=== PATIENT | female | born 1930 | race Caucasian/White ===

== ENCOUNTER 2017-09-13 12:31 | Inpatient (IN) ==
[2017-09-13] MEDS ORDERED: Ondansetron 4 MG/2 ML VIAL IVP ONE (12:35)
[2017-09-13] MEDS ORDERED: 0.9 % Sodium Chloride 1,000 ML IVC ONE (12:35)
--- NOTE | 2017-09-13 12:51 | Emergency Department Note ---
Disposition Clinical Impression: Diverticulitis, Acute diarrhea, Atrial fibrillation with RVR, Hypokalemia, Supratherapeutic INR Disposition: Admitted As Inpatient Condition: Undetermined Time of Disposition: 15:18 General Adult HPI - General Chief complaint: ED Weakness Stated complaint: weakness Time Seen by Provider: 09/13/17 12:32 Source: patient, EMS Mode of arrival: EMS Limitations: no limitations Nursing Notes Reviewed: Yes Vital Signs Reviewed: Yes - History of Present Illness HPI Narrative: 87-year-old female arrives to the emergency department complaining of diarrhea and generalized weakness over the course of the past few days. The patient states that she feels very weak is been experiencing high heart rate. The patient states that she feels some palpitations. She denies any chest pain or difficulty breathing. The patient is is very anxious on examination. She admits to some abdominal cramping but denies any overt abdominal pain. She has some associated nausea without vomiting. She is expressing diarrhea but states this is not uncommon for her given her past history of IBS. The patient does admit some intermittent episodes of hematochezia which again is not unusual for the patient. The patient denies any other complaints at this time but again appears very anxious on examination. - Related Data Allergies Allergy/AdvReac Type Severity Reaction Status Date / Time No Known Allergies Allergy Verified 09/13/17 13:05 All systems ED: reviewed and negative except as stated. Constitutional: Reports: weakness. Denies: fever, chills ENT ED: Denies: dysphagia Cardiovascular: Reports: palpitations. Denies: dyspnea on exertion, orthopnea, edema Respiratory: Denies: cough, dyspnea, sputum production Gastrointestinal: Reports: abdominal pain, nausea, diarrhea, hematochezia. Denies: vomiting, constipation, hematemesis, melena Genitourinary: Denies: urgency, dysuria Musculoskeletal: Reports: myalgia. Denies: back pain, neck pain, arthralgia Integumentary: Denies: rash Neurological: Reports: weakness. Denies: headache, confusion Past Medical History - Past Medical History Attestation: Yes The following information was validated with the patient. Source: patient, old records reviewed Medical history: Reports: hypertension, other (IBS) Surgical history: Reports: non-contributory - Social History Smoking Status: Never smoker Alcohol use: Reports: none Drug use: Reports: none Physical Exam - General Limitations: no limitations General appearance: alert, anxious, in distress (anxious) - Head Head exam: atraumatic, normocephalic, normal inspection - Eye Eye exam: Present: normal appearance, PERRL, EOMI - ENT ENT exam: normal exam, normal oropharynx, mucous membranes moist - Neck Neck exam: Present: normal inspection, full ROM, trachea midline - Chest Chest inspection: Present: normal inspection, symmetric chest wall rise - Respiratory Respiratory exam: Present: normal lung sounds bilaterally - Cardiovascular Cardiovascular exam: Present: tachycardia, irregular rhythm, normal heart sounds - Abdominal Exam Abdominal exam: Present: soft, Non-Tender. Absent: tenderness, distention, guarding, rebound, rigidity - Extremities Exam Extremities exam: Present: normal inspection, full ROM. Absent: tenderness, pedal edema - Neurological Exam Neurological exam: Present: alert, oriented X3 - Skin Skin exam: Present: warm, dry, intact, normal color Course Vital Signs Temperature 98.2 F 09/13/17 12:38 Pulse Rate 161 09/13/17 12:38 Respiratory Rate 22 09/13/17 12:38 Blood Pressure 177/154 09/13/17 12:38 O2 Sat by Pulse Oximetry 100 09/13/17 12:38 Temperature 98.2 F 09/13/17 12:38 Pulse Rate 86 09/13/17 16:20 Respiratory Rate 18 09/13/17 15:30 Blood Pressure 160/63 09/13/17 16:20 O2 Sat by Pulse Oximetry 96 09/13/17 16:20 Oxygen Delivery Oxygen Delivery Room Air Medical Decision Making - [facility] Narrative Medical decision making narrative: Patient's workup in the emergency department demonstrates atrial fibrillation with RVR. The patient was given a diltiazem bolus and started diltiazem drip. She is currently on a drip with a heart rate in the 70s. She remains in atrial fibrillation. The patient is on warfarin with an INR 5.6 which is critical. The patient has no bleeding noted. The patient was noted to have diverticulitis on CT scan. She was started on Cipro and Flagyl. The patient's blood pressure has remained stable and has a systolic of 164. The patient's heart rate is responded appropriately. The patient is resting comfortably at this time. She will be admitted to the hospital at this time with a supratherapeutic INR, atrial fibrillation with RVR, and diverticulitis with IV antibiotics. The patient was made aware and agrees to plan. Urinalysis remains pending at this time. No further questions or concerns noted, accepted by Dr. Mukherjee. - Lab Data Lab results reviewed: Yes I reviewed the patient's lab results. Result diagrams: 09/13/17 13:42 09/13/17 13:42 Lab Results 09/13/17 09/13/17 09/13/17 Range/Units 13:42 13:42 14:14 WBC 10.9 (4.3-11.1) K/mcL RBC 4.77 (3.82-4.97) M/mcL Hgb 14.5 (11.5-15.4) g/dL Hct 43.0 (35.3-44.9) % MCV 90.1 (83.0-100.0) fL MCH 30.4 (28.0-33.3) pg MCHC 33.7 (31.6-35.5) g/dL RDW 13.2 (11.5-14.5) % Plt Count 302 (140-400) K/mcL MPV 9.8 (9.4-12.4) fL Immature Gran % 0.4 (0-4) % Seg Neutrophils % 70.5 % Lymphocytes % 19.5 % Monocytes % 7.9 % Eosinophils % 1.2 % Basophils % 0.5 % Neutrophils # 7.7 (1.6-8.9) K/mcL Lymphocytes # 2.1 (0.6-4.6) K/mcL Monocytes # 0.9 (0.0-1.3) K/mcL Eosinophils # 0.1 (0.0-0.6) K/mcL Basophils # 0.1 (0.0-0.2) K/mcL PT 62.7 H* (9.4-12.1) Seconds INR 5.6 H* Sodium 143 (136-145) mEq/L Potassium 2.9 L (3.5-5.1) mEq/L Chloride 104 (98-107) mEq/L Carbon Dioxide 23 (23-29) mEq/L BUN 18 (8-23) mg/dL Creatinine 1.08 (0.60-1.20) mg/dL Est GFR ( Amer) 58 L (> 60) Est GFR (Non-Af Amer) 48 L (> 60) BUN/Creatinine Ratio 17 (6-26) Glucose 120 H (70-105) mg/dL Calculated Osmolality 299 (280-300) Calcium 9.3 (8.6-10.3) mg/dL Total Bilirubin 0.7 (0.3-1.0) mg/dL Direct Bilirubin 0.2 (0.0-0.2) mg/dL Indirect Bilirubin 0.5 (0.0-1.2) mg/dL AST 17 (13-39) Units/L ALT 8 (7-52) Units/L Alkaline Phosphatase 73 (34-104) Units/L Troponin I < 0.03 (< 0.04) ng/mL Serum Total Protein 7.1 (6.4-8.9) g/dL Albumin 3.7 (3.5-5.7) g/dL Globulin 3.4 (2.4-3.5) g/dL Albumin/Globulin Ratio 1.1 (1.1-2.2) Lipase 15 (11-82) Units/L - Radiology Data Radiology results reviewed: Yes I reviewed the patient's radiology results. Abdomen/Pelvis CT 09/13/17 12:45 IMPRESSION: 1. Colonic diverticulosis with bowel wall thickening in the descending colon proximally. There is infiltration of the fat adjacent to the colon in this region suggesting diverticulitis. No abnormal fluid collection is seen to suggest an abscess. 2. Status post cholecystectomy. 3. No obstructive uropathy. 4. No other acute abnormalities seen in the abdomen or pelvis. D/ / 09/13/2017 14:03:07 Donte Lua MD / harika Interpreting Provider: Donte Lua MD - EKG Data EKG #1 EKG attestation: Yes I reviewed and interpreted this EKG. EKG results narrative: Heart rate 150 beats for minute. Atrial fibrillation. No ST elevation or ST depression noted. Rapid ventricular response noted. EKG #2: Heart rate 90 beats for minute. Atrial fibrillation. No ST elevation but mild diffuse ST depression noted. Attestation Statement - Attestation Attestation: I examined this patient and my medical decision-making was reviewed with the Resident Physician. I agree with the documented findings, disposition and treatment plan as described except to the extent set forth below. 79-year-old female presenting with concern for weakness, subsequently found have supratherapeutic INR and to be in A. fib with rapid ventricular response. Her heart rate was controlled with diltiazem, subsequently found have acute diverticulitis. Suspect underlying infection as driving factor to elevated heart rate. Her symptoms are improved at this time, we will admit for antibiotic therapy, cardiac consultation evaluation of A. fib with RVR, remain on Cardizem drip for ongoing rate control. I spent greater than 35 minutes of critical care time resuscitating this acutely ill patient requiring Cardizem infusion. This was excluding billable procedures.
[2017-09-13] MEDS ORDERED: Hyoscyamine SL 0.125 MG TAB.SUBL SL STA (13:38)
[2017-09-13 13:56] LABS: Basophils # 0.1 K/mcL (0.0-0.2); Basophils % 0.5 %; Eosinophils # 0.1 K/mcL (0.0-0.6); Eosinophils % 1.2 %; Hemoglobin 14.5 g/dL (11.5-15.4); Immature Granulocytes % 0.4 % (0-4); Lymphocytes # 2.1 K/mcL (0.6-4.6); Lymphocytes % 19.5 %; Mean Corpuscular HGB Conc 33.7 g/dL (31.6-35.5); Mean Corpuscular Hemoglobin 30.4 pg (28.0-33.3); Mean Corpuscular Volume 90.1 fL (83.0-100.0); Mean Platelet Volume 9.8 fL (9.4-12.4); Monocytes # 0.9 K/mcL (0.0-1.3); Monocytes % 7.9 %; Neutrophils # 7.7 K/mcL (1.6-8.9); Platelet Count 302 K/mcL (140-400); Red Blood Count 4.77 M/mcL (3.82-4.97); Red Cell Distribution Width 13.2 % (11.5-14.5); Segmented Neutrophils % 70.5 %
[2017-09-13] MEDS ORDERED: MetroNIDAZOLE 500 MG/100 ML 500 MG/100 ML BAG IVPB ONE (14:00)
[2017-09-13 14:17] LABS: Troponin I < 0.03 ng/mL (< 0.04)
[2017-09-13 14:28] LABS: Alanine Aminotransferase 8 Units/L (7-52); Albumin 3.7 g/dL (3.5-5.7); Albumin/Globulin Ratio 1.1 (1.1-2.2); Alkaline Phosphatase 73 Units/L (34-104); Aspartate Amino Transferase 17 Units/L (13-39); BUN/Creatinine Ratio 17 (6-26); Bilirubin,Direct 0.2 mg/dL (0.0-0.2); Bilirubin,Indirect 0.5 mg/dL (0.0-1.2); Bilirubin,Total 0.7 mg/dL (0.3-1.0); Blood Urea Nitrogen 18 mg/dL (8-23); Calcium 9.3 mg/dL (8.6-10.3); Carbon Dioxide 23 mEq/L (23-29); Chloride 104 mEq/L (98-107); Globulin 3.4 g/dL (2.4-3.5); Glucose 120 mg/dL (70-105); Lipase 15 Units/L (11-82); Osmolality,Calculated 299 (280-300); Potassium 2.9 mEq/L (3.5-5.1); Sodium 143 mEq/L (136-145); Total Protein 7.1 g/dL (6.4-8.9); eGFR For Non-African Americans 48 (> 60)
[2017-09-13 14:50] LABS: INR 5.6; Prothrombin Time 62.7 Seconds (9.4-12.1)
[2017-09-13] MEDS ORDERED: Naloxone 0.4 MG/ML INJ IVP PRN (17:22)
--- NOTE | 2017-09-13 17:31 | Internal Med History&Physical ---
Addendum entered and electronically signed by Lula Thompson 09/13/17 22:31: Added Dr. Mukherjee as a co-signer Original Note: Date of Encounter: 09/13/17 Time of Encounter: 17:31 Internal Medicine - H&P: HPI Chief complaint: Weakness, tachycardia, diarrhea and abdominal cramping Admitted From: Home Plans for Post Hospital Care: Home History of present illness: Ms. Walter is a 87 year old female who indicated that she began having diarrhea , weakness, cramping abdominal pain and tachycardia. The patient indicated that she was having diarrheal stools at home. Ct of abdomen showed diverticulosis with diverticulitis. The patient has potassiun was 2.9, likely due to the diarrhea. The patient is supratherapeutic at 5.6. Will hold coumadin for now. PT /INR daily. The patient was started on flagyl and cipro in the ED and will continue. Initial EKG showed AFIB with RVR , rate 158. The second EKG showed afib with rate of 90. The patient was started on a cardizem gtt in the ED the heart rate is currently controlled. Blood pressure elevated, patient indicated she forgot to take BP meds at home, will resume. Past Med Surg Social Fam HX - Past Medical History Medical history: hypertension, other Psychiatric history: anxiety - Past Surgical History Surgical History: non-contributory - Social History Smoking Status: Never smoker Alcohol use: none Drug use: none Internal Medicine - H&P: Meds Calcium Carbonate/Vitamin D3 [Calcium 1,000 + D3 Caplet] 1 tab PO DAILY [History] Dicyclomine [Bentyl] 10 mg PO BID PRN 09/13/17 [History] FentaNYL PATCH [Duragesic] 12 mcg TD Q72H 09/13/17 [History] Isosorbide MONOnitrate (24 HR) [Imdur] 30 mg PO DAILY 09/13/17 [History] Levothyroxine [Synthroid] 75 mcg PO 0630 09/13/17 [History] Lisinopril [Zestril] 5 mg PO QAM 09/13/17 [History] Lisinopril [Zestril] 15 mg PO QPM 09/13/17 [History] Loratadine [Allergy Relief] 10 mg PO DAILY 09/13/17 [History] Metoprolol Succinate [Toprol Xl] 150 mg PO DAILY 09/13/17 [History] Mirtazapine [Remeron] 15 mg PO HS 09/13/17 [History] Omeprazole [PriLOSEC] 20 mg PO BID 09/13/17 [History] Simethicone [Phazyme] 1 cap PO DAILY PRN 09/13/17 [History] Simvastatin [Zocor] 40 mg PO HS 09/13/17 [History] Warfarin [Coumadin] 2 mg PO MOTUWETHFRSA 09/13/17 [History] Warfarin [Coumadin] 3 mg PO REY 09/13/17 [History] cloNIDine HCl [CloNIDine HCl] 0.1 mg PO BID 09/13/17 [History] 3 Allergy/AdvReac Type Severity Reaction Status Date / Time No Known Allergies Allergy Verified 09/13/17 13:05 All Systems PM: A 10-system review of systems was performed and is negative for pertinent findings except as documented above in the HPI. - Constitutional Constitutional: no chills, no fever(s), no night sweats - EENT Eyes: no change in vision, no discharge, no pain, no photophobia Ears: no ear discharge, no ear pain, no tinnitus Nose, mouth and throat: no dysphagia, no nasal discharge, no neck pain, no sore throat - Cardiovascular Cardiovascular ROS IM: irregular heart rhythm, no chest pain, no diaphoresis, no dyspnea, no lightheadedness, no palpitations, no syncope - Respiratory Respiratory: no cough, no dyspnea, no wheezing, no excessive phlegm production - Gastrointestinal Gastrointestinal: no abdominal pain, no diarrhea, no hematemesis, no hematochezia, no melena, no nausea, no vomiting - Genitourinary Genitourinary: no change in urinary stream, no dysuria, no flank pain, no hematuria - Musculoskeletal Musculoskeletal ROS IM: no numbness, no tingling - Integumentary Integumentary IM: no rash, no unusual bruising - Neurological Neurological ROS: no confusion, no convulsions, no focal weakness, no numbness, no tingling, no tremor(s) - Hematologic/Lymphatic Hematologic/Lymphatic: no easy bruising - Constitutional Vitals: Temp Pulse Resp BP Pulse Ox 98.2 F 86 16 190/63 98 09/13/17 17:08 08/07/18 16:20 09/13/17 17:08 09/13/17 17:08 09/13/17 17:08 General appearance: Present: A&O X 3 - Head Head exam: Present: atraumatic, normocephalic - Eye Eye exam: Present: PERRL, conjuntiva pink, sclera anicteric Pupils: Present: PERRL - Neck Neck exam general surgery: Present: supple, trachea midline. Absent: lymphadenopathy - Respiratory Respiratory exam: Present: CTAB. Absent: accessory muscle use, rales, rhonchi, wheezes - Cardiovascular Cardiovascular exam: Present: irregular rhythm, RRR, +S1, +S2, tachycardia. Absent: diastolic murmur, gallop, rubs, systolic murmur - GI/Abdominal GI/Abdominal exam: Present: normal bowel sounds, soft, tenderness (epigastric region), no peritoneal signs. Absent: distended - Extremities Exam Extremities exam: Present: warm, radial pulses palpable and symmetrical. Absent : calf tenderness, cyanotic, pedal edema - Neurological Exam Neurological exam: Present: CN II-XII intact, oriented X3, no focal deficits. Absent: pronater drift, facial droop, speech deficit - Skin Skin exam: Present: dry, intact Internal Med - H&P Results - Labs CBC & Chem 7: 09/13/17 13:42 09/13/17 13:42 - Assessment and plan (1) Acute diarrhea Current Visit: Yes Status: Acute Assessment and plan: Likely related to diverticulitis. Continue IV rocephin and flagyl Monitor daily labs (2) Atrial fibrillation with RVR Current Visit: Yes Status: Acute Assessment and plan: Cardizem drip. Cardiac monitoring Coumadin on hold-Suprtherapeutic Daily PT/INR (3) Diverticulitis Current Visit: Yes Status: Acute Assessment and plan: Likely related to diverticulitis. 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 Resume home bp medications Qualifiers: Hypertension type: essential hypertension Qualified Code(s): I10 - Essential (primary) hypertension - Time Spent With Patient Total time spent is greater than 50% in coordination of care (as documented) at patient's floor/unit and/or counseling patient:
[2017-09-13] MEDS ORDERED: Simethicone 40 MG/0.6 ML MLS PO PRN (18:07)
[2017-09-13] MEDS ORDERED: *HR* FentaNYL PATCH 12 MCG PATCH TD SCH (18:15)
[2017-09-13] MEDS: cloNIDine HCl 0.1 MG TABLET PO SCH (20:06)
[2017-09-13] MEDS: Mirtazapine 15 MG TABLET PO SCH (20:06)
[2017-09-13 20:34] LABS: Bilirubin,Urine Negative (Negative); Blood,Urine Moderate (Negative); Clarity,Urine Clear (Clear); Color,Urine Yellow (Yellow); Glucose,Urine (UA) Normal (Normal); Ketones,Urine 40 mg/dL (Negative); Leukocyte Esterase,Urine Small (Negative); Nitrite,Urine Negative (Negative); PH,Urine 5.5 pH Units (5.0-8.0); Protein,Urine Trace mg/dL (Neg-Trace); Specific Gravity,Urine 1.012 (1.010-1.025); Urobilinogen,Urine Normal (Normal)
[2017-09-13 20:35] LABS: Bacteria,Urine None Seen per hpf (None-Few); Hyaline Casts,Urine None Seen per lpf (None-Few); Squamous Epithelial Cell,Urine Many per lpf (None-Few); WBC,Urine 15-30 per hpf (0-3)
[2017-09-14] MEDS: MetroNIDAZOLE 500 MG/100 ML 500 MG/100 ML BAG IVPB SCH ×4 (00:47→23:54)
[2017-09-14 04:54] LABS: Basophils # 0.1 K/mcL (0.0-0.2); Basophils % 0.4 %; Eosinophils # 0.4 K/mcL (0.0-0.6); Eosinophils % 3.3 %; Hematocrit 35.4 % (35.3-44.9); Immature Granulocytes % 0.2 % (0-4); Lymphocytes # 2.4 K/mcL (0.6-4.6); Mean Corpuscular HGB Conc 32.8 g/dL (31.6-35.5); Mean Corpuscular Hemoglobin 29.5 pg (28.0-33.3); Mean Corpuscular Volume 90.1 fL (83.0-100.0); Mean Platelet Volume 9.8 fL (9.4-12.4); Monocytes # 0.9 K/mcL (0.0-1.3); Neutrophils # 7.5 K/mcL (1.6-8.9); Platelet Count 253 K/mcL (140-400); Red Blood Count 3.93 M/mcL (3.82-4.97); Red Cell Distribution Width 13.5 % (11.5-14.5); Segmented Neutrophils % 67.1 %
[2017-09-14 04:57] LABS: Hemoglobin 11.6 g/dL (11.5-15.4)
[2017-09-14 05:02] LABS: INR 6.9; Prothrombin Time 77.9 Seconds (9.4-12.1)
[2017-09-14 05:15] LABS: BUN/Creatinine Ratio 18 (6-26); Blood Urea Nitrogen 15 mg/dL (8-23); Calcium 8.6 mg/dL (8.6-10.3); Carbon Dioxide 24 mEq/L (23-29); Chloride 109 mEq/L (98-107); Chol/HDL Ratio 3.3 (0-4.9); Cholesterol 108 mg/dL (< 200); Glucose 105 mg/dL (70-105); HDL Cholesterol 33 mg/dL (40-59); LDL Cholesterol,Calculated 58 mg/dL (0-99); Osmolality,Calculated 293 (280-300); Potassium 3.8 mEq/L (3.5-5.1); Sodium 141 mEq/L (136-145); Triglycerides 87 mg/dL (< 150); eGFR For Non-African Americans > 60 (> 60)
--- NOTE | 2017-09-14 06:35 | Electrocardiograph Report ---
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
[2017-09-14] MEDS: Metoprolol XL (24 HR) Succ 50 MG TAB.ER.24H PO SCH (08:50)
[2017-09-14] MEDS: Loratadine 10 MG TABLET PO SCH (08:51)
[2017-09-14] MEDS: Cholecalciferol (D-3) 1,000 UNIT TABLET PO SCH (08:51)
[2017-09-14] MEDS: cloNIDine HCl 0.1 MG TABLET PO SCH ×2 (08:52→20:40)
[2017-09-14] MEDS: Isosorbide MONOnitrate (24 HR) 30 MG TAB.ER.24H PO SCH (08:52)
[2017-09-14] MEDS ORDERED: VITAMIN D3 PO SCH (09:00)
[2017-09-14] MEDS ORDERED: CALCIUM CARBONATE PO SCH (09:00)
[2017-09-14] MEDS ORDERED: [UNRECOGNIZED DRUG - OTHER] PO SCH (09:00)
--- NOTE | 2017-09-14 14:35 | Internal Med Progress Note ---
Hospitalist Progress Note - Encounter Date of Encounter: 09/14/17 Time of Encounter: 12:00 - Subjective Interval History: Ms. Walter is a 87 year old female with a known past medical history of chronic atrial fibrillation on Coumadin for anticoagulation, hypertension, hyperlipidemia and Gerd who presented emergency room with diarrhea, weakness, cramping abdominal pain and tachycardia. CT of abdomen showed diverticulosis with diverticulitis. The patient has potassiun was 2.9, likely due to the diarrhea. The patient is supratherapeutic at 5.6. She got admitted in the hospital and started her on flagyl and cipro. In the ER she was in Afib with RVR. The patient was started on a cardizem gtt i. Her HR in 70's now with Cardizem 2.5mg gtt. She is alert, awake and O x 3. Denied any CP . Tolerating pO intake well. No more diarrhea. No abd pain. - Exam Vitals: Temp Pulse Resp BP Pulse Ox 98.2 F 63 18 96/49 96 09/14/17 12:09 09/14/17 12:09/14/17 12:09/14/17 12:09/14/17 12:09 Exam: Gen: Alert, awake, Oriented to time,place and person Chest: Diminished breath sounds B/L, No wheezing, No crackles, No rales Heart: S1S2+ Afib, No murmurs Abd: Soft, NT, BS +, No organomegaly Ext: No edema, pulses are palpable, No calf tenderness Neuro : Benign findings Skin: No rash. - Assessment and Plan (1) Diverticulitis Current Visit: Yes Status: Acute Assessment and Plan: cont empirical abx IV cipro and Flagyl IV hydration Patient does need to stay in the hospital more than 2 midnights due to her complex medical problems. So we will change her to full admission today. I did review my colleague Lula Thompson H & P including HPI, PMH, PSH, FH, SH, and ROS no changes noticed (2) Acute diarrhea Current Visit: Yes Status: Acute Assessment and Plan: Due to diverticulitis mostly infectious cont empirical abx Cipro and Flagyl IV hydration continue symptomatic and supportive care (3) Atrial fibrillation with RVR Current Visit: Yes Status: Acute Assessment and Plan: Her rate well-controlled with the metoprolol XL will wean her off the Cardizem drip If needed will use Cardizem PO (4) Hypokalemia Current Visit: Yes Status: Acute Assessment and Plan: Cont replacing K + (5) Supratherapeutic INR Current Visit: Yes Status: Acute Assessment and Plan: INR is still high @ 6.9 Mostly due to Diarrhea / abx cont close monitoring no signs of active bleeding continue holding Coumadin - Time Spent with Patient Total time spent is greater than 50% in coordination of care (as documented) at patient's floor/unit and/or counseling patient: Internal Medicine: Result - Labs CBC & Chem 7: 09/14/17 04:14 09/14/17 04:14 - ABG Interpretation ABG results: PT/INR, D-dimer PT 77.9 Seconds (9.4-12.1) H* 09/14/17 04:14 Consult Discharge Plan - Plan Referrals: Ronda Quezada CNP [Partnered Physician] - 09/26/17 10:35 am
[2017-09-14] MEDS ORDERED: Mag Hydrox/Al Hydrox/Simeth 30 ML UDC PO PRN (14:40)
--- NOTE | 2017-09-14 16:47 | Electrocardiograph Report ---
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
[2017-09-14] MEDS: Mirtazapine 15 MG TABLET PO SCH (20:40)
[2017-09-14] MEDS ORDERED: Haloperidol Lactate 5 MG/ML VIAL IVP ONE (23:47)
[2017-09-15 06:23] LABS: INR 3.8; Prothrombin Time 42.8 Seconds (9.4-12.1)
--- NOTE | 2017-09-15 08:58 | Internal Med Progress Note ---
Hospitalist Progress Note - Encounter Date of Encounter: 09/15/17 Time of Encounter: 08:56 - Subjective Interval History: Ms. Walter is a 87 year old female with a known past medical history of chronic atrial fibrillation on Coumadin for anticoagulation, hypertension, hyperlipidemia and Gerd who presented emergency room with diarrhea, weakness, cramping abdominal pain and tachycardia. CT of abdomen showed diverticulosis with diverticulitis. The patient has potassiun was 2.9, likely due to the diarrhea. The patient is supratherapeutic at 5.6. She got admitted in the hospital and started her on flagyl and cipro. In the ER she was in Afib with RVR. The patient was started on a cardizem gtt. She is alert, awake and O to self only. Denied any CP . Tolerating PO intake well. No more diarrhea. No abd pain. She looks more confused today. - Exam Vitals: Temp Pulse Resp BP Pulse Ox 97.8 F 71 18 171/78 95 09/15/17 06:58 09/15/17 06:58 09/15/17 06:58 09/15/17 06:58 09/15/17 06:58 Exam: Gen: Alert, awake, Oriented to self..looks confused Chest: Diminished breath sounds B/L, No wheezing, No crackles, No rales Heart: S1S2+ Afib, No murmurs Abd: Soft, NT, BS +, No organomegaly Ext: No edema, pulses are palpable, No calf tenderness Neuro : Benign findings Skin: No rash. - Assessment and Plan (1) Diverticulitis Current Visit: Yes Status: Acute Assessment and Plan: cont empirical abx IV cipro and Flagyl d/c IVF (2) Acute diarrhea Current Visit: Yes Status: Acute Assessment and Plan: Due to diverticulitis mostly infectious cont empirical abx Cipro and Flagyl resolved continue symptomatic and supportive care (3) Atrial fibrillation with RVR Current Visit: Yes Status: Acute Assessment and Plan: Her rate well-controlled with the metoprolol XL (4) Hypokalemia Current Visit: Yes Status: Acute Assessment and Plan: Cont replacing K + (5) Supratherapeutic INR Current Visit: Yes Status: Acute Assessment and Plan: INR is still high @ 3.8 Mostly due to Diarrhea / abx cont close monitoring no signs of active bleeding continue holding Coumadin (6) Non-sustained ventricular tachycardia Current Visit: Yes Status: Acute Assessment and Plan: she had 17 beats of V Tach today Will check BMP and Mg Goal to keep K+ around 4 and Mg @ 2.0 (7) Acute delirium Current Visit: Yes Status: Acute Assessment and Plan: Due to dementia and sun down syndrome Cont close monitoring for now - Time Spent with Patient Total time spent is greater than 50% in coordination of care (as documented) at patient's floor/unit and/or counseling patient: Internal Medicine: Result - Labs CBC & Chem 7: 09/14/17 04:14 09/14/17 04:14 - ABG Interpretation ABG results: PT/INR, D-dimer PT 42.8 Seconds (9.4-12.1) H 09/15/17 06:06 - VTE Documentation of Mechanical Device: Intermittent pneumatic compression device Consult Discharge Plan - Plan Referrals: Ronda Quezada CNP [Partnered Physician] - 09/26/17 10:35 am
[2017-09-15 09:41] LABS: BUN/Creatinine Ratio 14 (6-26); Blood Urea Nitrogen 12 mg/dL (8-23); Calcium 8.7 mg/dL (8.6-10.3); Carbon Dioxide 28 mEq/L (23-29); Chloride 112 mEq/L (98-107); Glucose 110 mg/dL (70-105); Magnesium 1.4 mg/dL (1.6-2.6); Osmolality,Calculated 290 (280-300); Potassium 3.7 mEq/L (3.5-5.1); Sodium 140 mEq/L (136-145); eGFR For Non-African Americans > 60 (> 60)
[2017-09-15] MEDS: MetroNIDAZOLE 500 MG/100 ML 500 MG/100 ML BAG IVPB SCH ×3 (10:59→23:55)
[2017-09-15] MEDS: Isosorbide MONOnitrate (24 HR) 30 MG TAB.ER.24H PO SCH (11:00)
[2017-09-15] MEDS: cloNIDine HCl 0.1 MG TABLET PO SCH ×2 (11:00→19:48)
[2017-09-15] MEDS: Cholecalciferol (D-3) 1,000 UNIT TABLET PO SCH (11:00)
[2017-09-15] MEDS: Loratadine 10 MG TABLET PO SCH (11:00)
[2017-09-15] MEDS: Metoprolol XL (24 HR) Succ 50 MG TAB.ER.24H PO SCH (11:00)
--- NOTE | 2017-09-15 16:21 | Electrocardiograph Report ---
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
[2017-09-15] MEDS ORDERED: Haloperidol Lactate 5 MG/ML VIAL IVP PRN (17:20)
[2017-09-15] MEDS ORDERED: *HR* Warfarin 1 MG TABLET PO ONE (18:00)
[2017-09-15] MEDS ORDERED: Warfarin perPT PO PRN (18:00)
[2017-09-15] MEDS: Mirtazapine 15 MG TABLET PO SCH (19:48)
[2017-09-15] MEDS ORDERED: Melatonin 3 MG TABLET PO SCH (21:00)
[2017-09-16 07:31] VITALS: BP 164/72
[2017-09-16 07:35] LABS: Prothrombin Time 34.1 Seconds (9.4-12.1)
[2017-09-16 08:15] LABS: Calcium 8.6 mg/dL (8.6-10.3); Carbon Dioxide 27 mEq/L (23-29); Chloride 108 mEq/L (98-107); Glucose 109 mg/dL (70-105); Magnesium 1.5 mg/dL (1.6-2.6); Sodium 143 mEq/L (136-145); eGFR For Non-African Americans > 60 (> 60)
[2017-09-16] MEDS: Isosorbide MONOnitrate (24 HR) 30 MG TAB.ER.24H PO SCH (08:18)
[2017-09-16] MEDS: Metoprolol XL (24 HR) Succ 50 MG TAB.ER.24H PO SCH (08:18)
[2017-09-16] MEDS: Loratadine 10 MG TABLET PO SCH (08:18)
[2017-09-16] MEDS: Cholecalciferol (D-3) 1,000 UNIT TABLET PO SCH (08:18)
[2017-09-16] MEDS: cloNIDine HCl 0.1 MG TABLET PO SCH (08:18)
[2017-09-16] MEDS: MetroNIDAZOLE 500 MG/100 ML 500 MG/100 ML BAG IVPB SCH (08:19)
[2017-09-16 09:10] LABS: BUN/Creatinine Ratio 16 (6-26); Blood Urea Nitrogen 13 mg/dL (8-23); Osmolality,Calculated 297 (280-300)
--- NOTE | 2017-09-16 11:06 | Discharge Summary ---
- NOTES TO OUTPATIENT PROVIDER Notes to Outpatient Provider: f/u with PCP in one week. Please take Coumadin 1mg Tuesday/Sat/ Sun and go for PT /INR on Tuesday Coumadin clinic who will manage your further dosing. You have an appointment at Coumadin clinic on Tuesday ( 09/19/17 ) @ 10:15 Orders not resulted at time of discharge: Pending orders 09/17/17 04:00 INR/PT [Prothrombin Time INR] [COAG] AM 04009/18/17 04:00 INR/PT [Prothrombin Time INR] [COAG] AM 0400 09/19/17 04:00 INR/PT [Prothrombin Time INR] [COAG] AM 040 Date of Encounter: 09/16/17 Time of Encounter: 11:03 - Discharge Diagnosis (1) Diverticulitis Priority: Primary Status: Acute (2) Acute diarrhea Priority: Primary Status: Acute (3) Atrial fibrillation with RVR Priority: Primary Status: Acute (4) Hypokalemia Priority: Secondary Status: Acute (5) Supratherapeutic INR Priority: Secondary Status: Acute (6) Non-sustained ventricular tachycardia Priority: Secondary Status: Acute (7) Acute delirium Priority: Secondary Status: Acute Hospital course: Ms. Walter is a 87 year old female with a known past medical history of chronic atrial fibrillation on Coumadin for anticoagulation, hypertension, hyperlipidemia and Gerd who presented emergency room with diarrhea, weakness, cramping abdominal pain and tachycardia. CT of abdomen showed diverticulosis with diverticulitis. The patient has potassiun was 2.9, likely due to the diarrhea. The patient is supratherapeutic at 5.6. She got admitted in the hospital and started her on flagyl and cipro. In the ER she was in Afib with RVR. The patient was started on a cardizem gtt. We admitted her in the hospital and started her on empirical Abx Cipro an Flagyl. Also resumed home PO meds Metoprolol, her HR improved and in 70's now. Held her Coumadin for 2 days since INR was high. Pt was confused y/d mostly due to toxic encephalopathy with diverticulitis. Today she is alert, awake and O x 3. Tolerating PO intake well. So will d/c her home in stable condition today. Talked to pt's son at bed side and explained to him about current care. - Time Spent with Patient Total time spent providing and/or coordinating discharge services: - Discharge Medications Prescriptions: Ciprofloxacin [Cipro] 500 mg PO BID #12 tablet metroNIDAZOLE [Flagyl] 500 mg PO TID #18 tablet Home Medications: Calcium Carbonate/Vitamin D3 [Calcium 1,000 + D3 Caplet] 1 tab PO DAILY [History] Dicyclomine [Bentyl] 10 mg PO BID PRN 09/13/17 [History] FentaNYL PATCH [Duragesic] 12 mcg TD Q72H 09/13/17 [History] Isosorbide MONOnitrate (24 HR) [Imdur] 30 mg PO DAILY 09/13/17 [History] Levothyroxine [Synthroid] 75 mcg PO 0630 09/13/17 [History] Lisinopril [Zestril] 5 mg PO QAM 09/13/17 [History] Lisinopril [Zestril] 15 mg PO QPM 09/13/17 [History] Loratadine [Allergy Relief] 10 mg PO DAILY 09/13/17 [History] Metoprolol Succinate [Toprol Xl] 150 mg PO DAILY 09/13/17 [History] Mirtazapine [Remeron] 15 mg PO HS 09/13/17 [History] Omeprazole [PriLOSEC] 20 mg PO BID 09/13/17 [History] Simethicone [Phazyme] 1 cap PO DAILY PRN 09/13/17 [History] Simvastatin [Zocor] 40 mg PO HS 09/13/17 [History] cloNIDine HCl [CloNIDine HCl] 0.1 mg PO BID 09/13/17 [History] Ciprofloxacin [Cipro] 500 mg PO BID #12 tablet 09/16/17 [Rx] Warfarin [Coumadin] 1 mg PO DAILY #0 09/16/17 [Rx] metroNIDAZOLE [Flagyl] 500 mg PO TID #18 tablet 09/16/17 [Rx] Allergies/Adverse Reactions: 3 Allergy/AdvReac Type Severity Reaction Status Date / Time No Known Allergies Allergy Verified 09/13/17 13:05 Date of admission: 09/14/17 09:04 Primary care physician: Matilde Olmstead, - Constitutional Vitals: Temp Pulse Resp BP Pulse Ox 98.2 F 75 16 164/72 98 09/16/17 07:29 09/16/17 07:29 09/16/17 07:29 09/16/17 07:29 09/16/17 07:29 General appearance: Present: A&O X 3 - Head Head exam: Present: atraumatic, normal inspection - Neck Neck exam general surgery: Present: supple - Respiratory Respiratory exam: Present: decreased breath sounds. Absent: rales, respiratory distress, rhonchi, wheezes - Cardiovascular Cardiovascular exam: Present: RRR, +S1, +S2. Absent: tachycardia - GI/Abdominal GI/Abdominal exam: Present: normal bowel sounds, soft. Absent: rebound, rigid, tenderness - Extremities Exam Extremities exam: Absent: calf tenderness, pedal edema, tenderness - Back Exam Back exam: Absent: CVA tenderness (L), CVA tenderness (R) - Neurological Exam Neurological exam: Present: alert, oriented X3 - Patient Status Disposition: Home, Self-Care Condition: Good Overall status at discharge: patient is back to baseline - Discharge Instructions Follow Up With: Ronda Quezada CNP [Partnered Physician] - 09/26/17 10:35 am - Diet and Activity Activity: increase activity as tolerated Diet: low salt diet - VTE Documentation of Mechanical Device: Intermittent pneumatic compression device
[2017-09-16] MEDS ORDERED: *HR* Warfarin 1 MG TABLET PO ONE (18:00)
== END 2017-09-16 12:42 | disposition home or self-care (01) | DRG 391 ==
LOC: 2NNU 12:31 → EMEROO 12:31 → 2NNU 16:48
PROVIDERS: ADMIT Family Medicine; ATTEND Internal Medicine

== ENCOUNTER 2019-01-24 19:32 | Inpatient (IN) ==
[2019-01-24] MEDS ORDERED: 0.9 % Sodium Chloride 1,000 ML IVC ONE (19:40)
[2019-01-24 20:16] LABS: Basophils # 0.1 K/mcL (0.0-0.2); Basophils % 0.5 %; Eosinophils # 0.1 K/mcL (0.0-0.6); Eosinophils % 0.9 %; Hematocrit 38.8 % (35.3-44.9); Immature Granulocytes % 0.5 % (0-4); Lymphocytes # 2.5 K/mcL (0.6-4.6); Lymphocytes % 25.8 %; Mean Corpuscular HGB Conc 33.5 g/dL (31.6-35.5); Mean Corpuscular Hemoglobin 30.3 pg (28.0-33.3); Mean Corpuscular Volume 90.4 fL (83.0-100.0); Monocytes # 0.6 K/mcL (0.0-1.3); Monocytes % 6.3 %; Neutrophils # 6.4 K/mcL (1.6-8.9); Platelet Count 221 K/mcL (140-400); Red Blood Count 4.29 M/mcL (3.82-4.97); Red Cell Distribution Width 13.9 % (11.5-14.5); White Blood Count 9.6 K/mcL (4.3-11.1)
[2019-01-24 20:29] LABS: INR 1.4; Prothrombin Time 15.7 Seconds (9.4-12.1)
[2019-01-24 20:33] LABS: Activated Partial Thrombo Time 27.7 Seconds (26.0-36.0)
[2019-01-24 20:38] LABS: Alanine Aminotransferase 13 Units/L (7-52); Albumin 3.5 g/dL (3.5-5.7); Albumin/Globulin Ratio 1.3 (1.1-2.2); Alkaline Phosphatase 61 Units/L (34-104); Aspartate Amino Transferase 17 Units/L (13-39); BUN/Creatinine Ratio 11 (6-26); Bilirubin,Direct 0.1 mg/dL (0.0-0.2); Bilirubin,Indirect 0.4 mg/dL (0.0-1.0); Bilirubin,Total 0.5 mg/dL (0.3-1.0); Blood Urea Nitrogen 63 mg/dL (8-23); Calcium 8.9 mg/dL (8.6-10.3); Carbon Dioxide 18 mEq/L (23-29); Chloride 103 mEq/L (98-107); Ethanol < 10 mg/dL (Less than 10); Globulin 2.7 g/dL (2.4-3.5); Glucose 102 mg/dL (70-105); Osmolality,Calculated 304 (280-300); Potassium 3.5 mEq/L (3.5-5.1); Sodium 138 mEq/L (136-145); Total Protein 6.2 g/dL (6.4-8.9); Troponin I < 0.03 ng/mL (< 0.04); eGFR For African Americans 8 (> 60); eGFR For Non-African Americans 7 (> 60)
[2019-01-24] MEDS ORDERED: 0.9 % Sodium Chloride 1,000 ML IV ONE (20:47)
[2019-01-24 21:06] LABS: Bilirubin,Urine Moderate (Negative); Blood,Urine Negative (Negative); Clarity,Urine Cloudy (Clear); Color,Urine Yellow (Yellow); Glucose,Urine (UA) Normal (Normal); Ketones,Urine Negative (Negative); Leukocyte Esterase,Urine Small (Negative); Nitrite,Urine Negative (Negative); Protein,Urine 30 mg/dL (Neg-Trace); Specific Gravity,Urine 1.019 (1.010-1.025); Urobilinogen,Urine Normal (Normal)
[2019-01-24 21:08] LABS: Bacteria,Urine Moderate per hpf (None-Few); Hyaline Casts,Urine Few per lpf (None-Few); Squamous Epithelial Cell,Urine Many per lpf (None-Few); WBC,Urine 15-30 per hpf (0-3)
[2019-01-24 21:16] LABS: Amphetamine Screen,Urine Negative ng/mL (Cutoff=1000); Barbiturate Screen,Urine Negative ng/mL (Cutoff=200); Benzodiazepines Screen,Urine Negative ng/mL (Cutoff=200); Cannabinoid Screen,Urine Negative ng/mL (Cutoff = 50); Cocaine Screen,Urine Negative ng/mL (Cutoff= 300); Opiate Screen,Urine Negative ng/mL (Cutoff=300); Phencyclidine Screen,Urine Negative ng/mL (Cutoff=25)
[2019-01-24 21:17] LABS: Amorphous Sediment,Urine Moderate per hpf (Few)
[2019-01-24] MEDS ORDERED: Simethicone 40 MG/0.6 ML MLS PO PRN (22:28)
[2019-01-24 22:52] LABS: Creatine Kinase 23 Units/L (30-223); Magnesium 1.5 mg/dL (1.6-2.6); Phosphorous 5.3 mg/dL (2.7-4.5)
[2019-01-24 23:01] LABS: Creatinine,Urine 252 mg/dL
[2019-01-24] MEDS ORDERED: Ringers Solution, Lactated 1,000 ML IVC SCH (23:15)
[2019-01-25] MEDS ORDERED: Ondansetron 4 MG/2 ML VIAL IVP PRN (01:10)
[2019-01-25 06:55] LABS: Calcium 8.3 mg/dL (8.6-10.3); Potassium 3.1 mEq/L (3.5-5.1)
[2019-01-25] MEDS: 0.9 % Sodium Chloride w KCl 40 MEQ/1,000 ML MLS IVC SCH (08:38)
[2019-01-25] MEDS: *HR* FentaNYL PATCH 12 MCG PATCH TD SCH (08:38)
[2019-01-25] MEDS: Loratadine 10 MG TABLET PO SCH (08:39)
[2019-01-25] MEDS: Multivit/Ca/Min/Fe/FA 1 TAB TABLET PO SCH (08:39)
[2019-01-25] MEDS: Metoprolol XL (24 HR) Succ 50 MG TAB.ER.24H PO SCH (08:39)
[2019-01-25] MEDS: Apixaban 2.5 MG TABLET PO SCH ×2 (08:40→20:08)
[2019-01-25] MEDS: cloNIDine HCl 0.1 MG TABLET PO SCH (08:40)
[2019-01-25] MEDS: Cyanocobalamin (B-12) 1,000 MCG TABLET PO SCH (08:40)
[2019-01-25 08:42] LABS: Magnesium 1.7 mg/dL (1.6-2.6)
[2019-01-25] MEDS: Isosorbide MONOnitrate (24 HR) 30 MG TAB.ER.24H PO SCH (12:33)
[2019-01-25] MEDS: Mirtazapine 15 MG TABLET PO SCH (20:08)
[2019-01-26] MEDS: 0.9 % Sodium Chloride w KCl 40 MEQ/1,000 ML MLS IVC SCH (00:04)
[2019-01-26] MEDS ORDERED: Haloperidol Lactate 5 MG/ML VIAL IVP ONE (02:45)
[2019-01-26] MEDS ORDERED: *HR* Promethazine 25 MG/ML VIAL IVP ONE (02:46)
[2019-01-26] MEDS ORDERED: cefTRIAXone 1,000 MG in Water for inj. (sterile) 10 ML IVP SCH (09:00)
[2019-01-26] MEDS: Loratadine 10 MG TABLET PO SCH (09:54)
[2019-01-26] MEDS: Isosorbide MONOnitrate (24 HR) 30 MG TAB.ER.24H PO SCH (09:55)
[2019-01-26] MEDS: Cyanocobalamin (B-12) 1,000 MCG TABLET PO SCH (09:55)
[2019-01-26] MEDS: Apixaban 2.5 MG TABLET PO SCH ×2 (09:55→20:40)
[2019-01-26] MEDS: Multivit/Ca/Min/Fe/FA 1 TAB TABLET PO SCH (09:55)
[2019-01-26] MEDS: Metoprolol XL (24 HR) Succ 50 MG TAB.ER.24H PO SCH (09:55)
[2019-01-26 11:29] LABS: Hemoglobin 13.7 g/dL (11.5-15.4)
[2019-01-26 11:39] LABS: Immature Platelets 4.6 % (1.1-6.1); Mean Corpuscular HGB Conc 33.4 g/dL (31.6-35.5); Mean Corpuscular Volume 89.7 fL (83.0-100.0); Mean Platelet Volume 10.7 fL (9.4-12.4); Red Blood Count 4.57 M/mcL (3.82-4.97); Red Cell Distribution Width 14.1 % (11.5-14.5); White Blood Count 11.4 K/mcL (4.3-11.1)
[2019-01-26 11:59] LABS: Calcium 8.8 mg/dL (8.6-10.3); Magnesium 1.3 mg/dL (1.6-2.6); Potassium 3.9 mEq/L (3.5-5.1)
[2019-01-26] MEDS ORDERED: Potassium Phosphate 44 MEQ in 0.9 % Sodium Chloride 250 ML IVPB ONE (12:32)
[2019-01-26] MEDS: 0.9 % Sodium Chloride 1,000 ML IVC SCH (14:48)
[2019-01-26] MEDS ORDERED: SODIUM CHLORIDE/NAHCO3/KCL/PEG 4,000 ML SOLN.RECON PO ONE (17:00)
[2019-01-26] MEDS: Meropenem 1,000 MG in 0.9 % Sodium Chloride Mini Bag 100 ML IVPB SCH (20:39)
[2019-01-26] MEDS: cloNIDine HCl 0.1 MG TABLET PO SCH (20:40)
[2019-01-26] MEDS: Mirtazapine 15 MG TABLET PO SCH (20:40)
[2019-01-27] MEDS ORDERED: Ondansetron 4 MG/2 ML VIAL IVP PRN (04:46)
[2019-01-27] MEDS: Meropenem 1,000 MG in 0.9 % Sodium Chloride Mini Bag 100 ML IVPB SCH (05:17)
[2019-01-27] MEDS: cloNIDine HCl 0.1 MG TABLET PO SCH ×2 (07:28→21:37)
[2019-01-27] MEDS: Loratadine 10 MG TABLET PO SCH (07:28)
[2019-01-27] MEDS: Cyanocobalamin (B-12) 1,000 MCG TABLET PO SCH (07:29)
[2019-01-27] MEDS: Metoprolol XL (24 HR) Succ 50 MG TAB.ER.24H PO SCH (07:29)
[2019-01-27] MEDS: Multivit/Ca/Min/Fe/FA 1 TAB TABLET PO SCH (07:29)
[2019-01-27] MEDS: Apixaban 2.5 MG TABLET PO SCH (07:29)
[2019-01-27] MEDS: Isosorbide MONOnitrate (24 HR) 30 MG TAB.ER.24H PO SCH (07:29)
[2019-01-27] MEDS: 0.9 % Sodium Chloride 1,000 ML IVC SCH (08:24)
[2019-01-27] MEDS ORDERED: Ertapenem 1,000 MG in 0.9 % Sodium Chloride Mini Bag 100 ML IVPB SCH (09:00)
[2019-01-27 12:42] LABS: Hematocrit 37.4 % (35.3-44.9); Mean Corpuscular HGB Conc 34.8 g/dL (31.6-35.5); Mean Corpuscular Hemoglobin 30.8 pg (28.0-33.3); Mean Corpuscular Volume 88.6 fL (83.0-100.0); Mean Platelet Volume 10.5 fL (9.4-12.4); Platelet Count 232 K/mcL (140-400); Red Blood Count 4.22 M/mcL (3.82-4.97); Red Cell Distribution Width 14.5 % (11.5-14.5)
[2019-01-27 13:04] LABS: BUN/Creatinine Ratio 23 (6-26); Blood Urea Nitrogen 24 mg/dL (8-23); Calcium 8.6 mg/dL (8.6-10.3); Carbon Dioxide 14 mEq/L (23-29); Chloride 118 mEq/L (98-107); Glucose 117 mg/dL (70-105); Osmolality,Calculated 303 (280-300); Phosphorous 2.5 mg/dL (2.7-4.5); Potassium 3.9 mEq/L (3.5-5.1); Sodium 144 mEq/L (136-145); eGFR For African Americans > 60 (> 60); eGFR For Non-African Americans 50 (> 60)
[2019-01-27] MEDS ORDERED: *HR* Propofol 200 MG/20 ML VIAL IVP ONE (13:44)
[2019-01-27] MEDS: Mirtazapine 15 MG TABLET PO SCH (21:37)
[2019-01-28 04:45] LABS: Hematocrit 31.3 % (35.3-44.9); Mean Corpuscular HGB Conc 35.1 g/dL (31.6-35.5); Mean Corpuscular Hemoglobin 31.3 pg (28.0-33.3); Mean Corpuscular Volume 88.9 fL (83.0-100.0); Mean Platelet Volume 10.6 fL (9.4-12.4); Platelet Count 185 K/mcL (140-400); Red Blood Count 3.52 M/mcL (3.82-4.97); Red Cell Distribution Width 14.8 % (11.5-14.5); White Blood Count 9.2 K/mcL (4.3-11.1)
[2019-01-28 05:04] LABS: BUN/Creatinine Ratio 21 (6-26); Blood Urea Nitrogen 22 mg/dL (8-23); Calcium 7.6 mg/dL (8.6-10.3); Carbon Dioxide 18 mEq/L (23-29); Chloride 115 mEq/L (98-107); Glucose 93 mg/dL (70-105); Magnesium 1.6 mg/dL (1.6-2.6); Osmolality,Calculated 297 (280-300); Phosphorous 2.7 mg/dL (2.7-4.5); Potassium 3.6 mEq/L (3.5-5.1); Sodium 142 mEq/L (136-145); eGFR For African Americans > 60 (> 60); eGFR For Non-African Americans 50 (> 60)
[2019-01-28] MEDS: *HR* FentaNYL PATCH 12 MCG PATCH TD SCH (07:44)
[2019-01-28] MEDS: Loratadine 10 MG TABLET PO SCH (07:46)
[2019-01-28] MEDS: Multivit/Ca/Min/Fe/FA 1 TAB TABLET PO SCH (07:47)
[2019-01-28] MEDS: cloNIDine HCl 0.1 MG TABLET PO SCH ×2 (07:47→19:56)
[2019-01-28] MEDS: Metoprolol XL (24 HR) Succ 50 MG TAB.ER.24H PO SCH (07:47)
[2019-01-28] MEDS: Isosorbide MONOnitrate (24 HR) 30 MG TAB.ER.24H PO SCH (07:47)
[2019-01-28] MEDS: Cyanocobalamin (B-12) 1,000 MCG TABLET PO SCH (07:48)
[2019-01-28] MEDS: Apixaban 5 MG TABLET PO SCH ×2 (10:10→19:55)
[2019-01-28] MEDS: Psyllium 1 PACKET POWD.PACK PO SCH (10:11)
[2019-01-28] MEDS ORDERED: Furosemide 20 MG/2 ML VIAL IVP ONE (14:43)
[2019-01-28] MEDS: Mirtazapine 15 MG TABLET PO SCH (19:56)
[2019-01-29 03:43] LABS: Hematocrit 30.9 % (35.3-44.9); Hemoglobin 10.6 g/dL (11.5-15.4); Mean Corpuscular HGB Conc 34.3 g/dL (31.6-35.5); Mean Corpuscular Hemoglobin 30.8 pg (28.0-33.3); Mean Corpuscular Volume 89.8 fL (83.0-100.0); Mean Platelet Volume 10.4 fL (9.4-12.4); Platelet Count 161 K/mcL (140-400); Red Blood Count 3.44 M/mcL (3.82-4.97); Red Cell Distribution Width 14.6 % (11.5-14.5); White Blood Count 8.1 K/mcL (4.3-11.1)
[2019-01-29 04:02] LABS: Calcium 7.6 mg/dL (8.6-10.3); Potassium 3.3 mEq/L (3.5-5.1)
[2019-01-29] MEDS: Metoprolol XL (24 HR) Succ 50 MG TAB.ER.24H PO SCH ×2 (08:48→08:49)
[2019-01-29] MEDS: cloNIDine HCl 0.1 MG TABLET PO SCH (08:49)
[2019-01-29] MEDS: Apixaban 5 MG TABLET PO SCH (08:49)
[2019-01-29] MEDS: Cyanocobalamin (B-12) 1,000 MCG TABLET PO SCH (08:49)
[2019-01-29] MEDS: Loratadine 10 MG TABLET PO SCH (08:49)
[2019-01-29] MEDS: Psyllium 1 PACKET POWD.PACK PO SCH (08:49)
[2019-01-29] MEDS: Isosorbide MONOnitrate (24 HR) 30 MG TAB.ER.24H PO SCH (08:49)
[2019-01-29] MEDS: Multivit/Ca/Min/Fe/FA 1 TAB TABLET PO SCH (08:50)
[2019-01-29 14:54] VITALS: BP 102/61
== END 2019-01-29 17:25 | DRG 682 ==
LOC: EMEROOARM 19:32 → CDU 19:32 → SUATTDRO 23:28 → CDU 01-25 03:13 → 3ANU 01-25 15:20
PROVIDERS: ADMIT Internal Medicine; ATTEND Internal Medicine

== ENCOUNTER 2019-02-09 11:03 | Inpatient (IN) ==
[2019-02-09] MEDS ORDERED: 0.9 % Sodium Chloride 1,000 ML IVC SCH (11:30)
[2019-02-09 12:08] LABS: Basophils % 0.5 %; Bilirubin,Urine Negative (Negative); Blood,Urine Small (Negative); Clarity,Urine Cloudy (Clear); Color,Urine Yellow (Yellow); Eosinophils % 0.4 %; Glucose,Urine (UA) Normal (Normal); Hematocrit 34.7 % (35.3-44.9); Hemoglobin 11.5 g/dL (11.5-15.4); Immature Granulocytes % 0.4 % (0-4); Ketones,Urine 15 mg/dL (Negative); Leukocyte Esterase,Urine Negative (Negative); Lymphocytes # 1.2 K/mcL (0.6-4.6); Lymphocytes % 14.7 %; Mean Corpuscular HGB Conc 33.1 g/dL (31.6-35.5); Mean Corpuscular Hemoglobin 30.2 pg (28.0-33.3); Mean Corpuscular Volume 91.1 fL (83.0-100.0); Mean Platelet Volume 9.8 fL (9.4-12.4); Monocytes # 0.6 K/mcL (0.0-1.3); Monocytes % 7.2 %; Neutrophils # 6.3 K/mcL (1.6-8.9); Nitrite,Urine Negative (Negative); PH,Urine 5.5 pH Units (5.0-8.0); Platelet Count 263 K/mcL (140-400); Protein,Urine 100 mg/dL (Neg-Trace); Red Blood Count 3.81 M/mcL (3.82-4.97); Red Cell Distribution Width 15.7 % (11.5-14.5); Segmented Neutrophils % 76.8 %; Urobilinogen,Urine Normal (Normal); White Blood Count 8.2 K/mcL (4.3-11.1)
[2019-02-09 12:11] LABS: Bacteria,Urine None Seen per hpf (None-Few); Hyaline Casts,Urine Few per lpf (None-Few); Squamous Epithelial Cell,Urine Many per lpf (None-Few); WBC,Urine 0-3 per hpf (0-3)
[2019-02-09 13:05] LABS: Alanine Aminotransferase 22 Units/L (7-52); Albumin 3.6 g/dL (3.5-5.7); Albumin/Globulin Ratio 1.2 (1.1-2.2); Alkaline Phosphatase 71 Units/L (34-104); Aspartate Amino Transferase 26 Units/L (13-39); BUN/Creatinine Ratio 9 (6-26); Bilirubin,Direct 0.2 mg/dL (0.0-0.2); Bilirubin,Indirect 0.7 mg/dL (0.0-1.0); Bilirubin,Total 0.9 mg/dL (0.3-1.0); Blood Urea Nitrogen 7 mg/dL (8-23); Calcium 8.2 mg/dL (8.6-10.3); Carbon Dioxide 28 mEq/L (23-29); Chloride 104 mEq/L (98-107); Creatine Kinase 85 Units/L (30-223); Ethanol < 10 mg/dL (Less than 10); Glucose 104 mg/dL (70-105); Osmolality,Calculated 306 (280-300); Potassium 2.6 mEq/L (3.5-5.1); Sodium 149 mEq/L (136-145); Total Protein 6.6 g/dL (6.4-8.9); eGFR For African Americans > 60 (> 60); eGFR For Non-African Americans > 60 (> 60)
[2019-02-09 13:11] LABS: Thyroid Stimulating Hormone 3.661 mcIU/mL (0.340-5.600)
[2019-02-09] MEDS ORDERED: Potassium Chloride 40 MEQ, Lidocaine 1% 2 ML in 0.9 % Sodium Chloride 500 ML IVPB ONE (13:12)
[2019-02-09] MEDS ORDERED: 0.9 % Sodium Chloride 1,000 ML IVC ONE (13:13)
[2019-02-09] MEDS ORDERED: Naloxone 0.4 MG/ML INJ IVP PRN (16:33)
[2019-02-09 18:36] LABS: BUN/Creatinine Ratio 8 (6-26); Blood Urea Nitrogen 6 mg/dL (8-23); Calcium 7.9 mg/dL (8.6-10.3); Carbon Dioxide 28 mEq/L (23-29); Chloride 108 mEq/L (98-107); Glucose 103 mg/dL (70-105); Osmolality,Calculated 308 (280-300); Potassium 3.7 mEq/L (3.5-5.1); Sodium 150 mEq/L (136-145); eGFR For African Americans > 60 (> 60); eGFR For Non-African Americans > 60 (> 60)
[2019-02-09] MEDS ORDERED: cloNIDine HCl 0.1 MG TABLET PO ONE (18:49)
[2019-02-09] MEDS: cloNIDine HCl 0.1 MG TABLET PO SCH (18:55)
[2019-02-09] MEDS: Apixaban 2.5 MG TABLET PO SCH (20:52)
[2019-02-10] MEDS ORDERED: *HR* Metoprolol 5 MG/5 ML VIAL IVP ONE ×3 (00:35→04:43)
[2019-02-10 00:41] LABS: BUN/Creatinine Ratio 10 (6-26); Blood Urea Nitrogen 7 mg/dL (8-23); Carbon Dioxide 22 mEq/L (23-29); Chloride 111 mEq/L (98-107); Glucose 95 mg/dL (70-105); Magnesium 1.4 mg/dL (1.6-2.6); Osmolality,Calculated 300 (280-300); Potassium 3.8 mEq/L (3.5-5.1); Sodium 146 mEq/L (136-145); eGFR For African Americans > 60 (> 60); eGFR For Non-African Americans > 60 (> 60)
[2019-02-10] MEDS ORDERED: Furosemide 20 MG/2 ML VIAL IVP ONE ×2 (01:50→02:02)
[2019-02-10] MEDS ORDERED: Haloperidol Lactate 5 MG/ML VIAL IVP ONE (03:13)
[2019-02-10] MEDS ORDERED: *HR* Promethazine 25 MG/ML VIAL IVP ONE (03:13)
[2019-02-10] MEDS: Levalbuterol Neb 0.63 MG/3 ML IH SCH ×5 (04:32→20:31)
[2019-02-10 06:59] LABS: Hematocrit 36.5 % (35.3-44.9); Hemoglobin 11.8 g/dL (11.5-15.4); Mean Corpuscular HGB Conc 32.3 g/dL (31.6-35.5); Mean Corpuscular Hemoglobin 30.2 pg (28.0-33.3); Mean Corpuscular Volume 93.4 fL (83.0-100.0); Mean Platelet Volume 9.6 fL (9.4-12.4); Platelet Count 279 K/mcL (140-400); Red Blood Count 3.91 M/mcL (3.82-4.97); Red Cell Distribution Width 16.1 % (11.5-14.5); White Blood Count 11.6 K/mcL (4.3-11.1)
[2019-02-10 07:15] LABS: BUN/Creatinine Ratio 9 (6-26); Blood Urea Nitrogen 7 mg/dL (8-23); Calcium 8.3 mg/dL (8.6-10.3); Carbon Dioxide 24 mEq/L (23-29); Chloride 105 mEq/L (98-107); Glucose 119 mg/dL (70-105); Magnesium 1.3 mg/dL (1.6-2.6); Osmolality,Calculated 307 (280-300); Potassium 3.5 mEq/L (3.5-5.1); Sodium 149 mEq/L (136-145); eGFR For African Americans > 60 (> 60); eGFR For Non-African Americans > 60 (> 60)
[2019-02-10] MEDS: *HR* Metoprolol 5 MG/5 ML VIAL IVP PRN ×2 (10:50→20:11)
[2019-02-10] MEDS: amLODIPine 5 MG TABLET PO SCH (10:56)
[2019-02-10] MEDS: Apixaban 2.5 MG TABLET PO SCH (10:56)
[2019-02-10] MEDS: Metoprolol XL (24 HR) Succ 50 MG TAB.ER.24H PO SCH (10:56)
[2019-02-10] MEDS: cloNIDine HCl 0.1 MG TABLET PO SCH ×3 (10:56→23:40)
[2019-02-10] MEDS: Doxycycline 100 MG in 0.9 % Sodium Chloride Mini Bag 100 ML IVPB SCH ×3 (11:06→20:20)
[2019-02-10] MEDS: Haloperidol Lactate 5 MG/ML VIAL IVP PRN ×2 (11:07→19:02)
[2019-02-10] MEDS: Aztreonam 500 MG in 0.9 % Sodium Chloride 50 ML IVPB SCH ×3 (12:33→19:50)
[2019-02-10 14:28] LABS: Adenovirus Not Detected (Not Detect); Bordetella Pertussis Not Detected (Not Detect); Chlamydophila pneumoniae Not Detected (Not Detect); Coronavirus 229E Not Detected (Not Detect); Coronavirus HKU1 Not Detected (Not Detect); Coronavirus NL63 Not Detected (Not Detect); Coronavirus OC43 Not Detected (Not Detect); Human Metapneumovirus Not Detected (Not Detect); Human Rhinovirus/Enterovirus Not Detected (Not Detect); Influenza A Subtype 2009 H1 Not Detected (Not Detect); Influenza B Not Detected (Not Detect); Mycoplasma pneumoniae Not Detected (Not Detect); Parainfluenza Virus 1 Not Detected (Not Detect); Parainfluenza Virus 2 Not Detected (Not Detect); Parainfluenza Virus 3 Not Detected (Not Detect); Parainfluenza Virus 4 Not Detected (Not Detect); Respiratory Syncytial Virus Not Detected (Not Detect)
[2019-02-10] MEDS ORDERED: *HR* Labetalol 20 MG/4 ML SYRINGE IVP ONE (14:31)
[2019-02-10] MEDS: Furosemide 20 MG/2 ML VIAL IVP SCH (15:47)
[2019-02-10] MEDS ORDERED: Levalbuterol Neb 0.63 MG/3 ML IH PRN (20:57)
[2019-02-11] MEDS: Aztreonam 500 MG in 0.9 % Sodium Chloride 50 ML IVPB SCH ×3 (01:30→16:26)
[2019-02-11] MEDS: Haloperidol Lactate 5 MG/ML VIAL IVP PRN (02:10)
[2019-02-11] MEDS: *HR* Metoprolol 5 MG/5 ML VIAL IVP PRN (02:10)
[2019-02-11] MEDS: Doxycycline 100 MG in 0.9 % Sodium Chloride Mini Bag 100 ML IVPB SCH ×2 (06:13→17:15)
[2019-02-11 07:03] LABS: Basophils % 0.4 %; Hematocrit 36.6 % (35.3-44.9); Hemoglobin 11.6 g/dL (11.5-15.4); Immature Granulocytes % 0.4 % (0-4); Lymphocytes # 1.3 K/mcL (0.6-4.6); Mean Corpuscular HGB Conc 31.7 g/dL (31.6-35.5); Mean Corpuscular Hemoglobin 30.1 pg (28.0-33.3); Mean Corpuscular Volume 95.1 fL (83.0-100.0); Mean Platelet Volume 9.9 fL (9.4-12.4); Monocytes # 0.5 K/mcL (0.0-1.3); Monocytes % 4.7 %; Neutrophils # 9.2 K/mcL (1.6-8.9); Platelet Count 284 K/mcL (140-400); Red Blood Count 3.85 M/mcL (3.82-4.97); Red Cell Distribution Width 16.3 % (11.5-14.5); Segmented Neutrophils % 82.5 %; White Blood Count 11.2 K/mcL (4.3-11.1)
[2019-02-11 07:21] LABS: BUN/Creatinine Ratio 22 (6-26); Blood Urea Nitrogen 20 mg/dL (8-23); Calcium 8.9 mg/dL (8.6-10.3); Carbon Dioxide 22 mEq/L (23-29); Chloride 105 mEq/L (98-107); Glucose 122 mg/dL (70-105); Magnesium 1.3 mg/dL (1.6-2.6); Osmolality,Calculated 314 (280-300); Phosphorous 3.4 mg/dL (2.7-4.5); Potassium 3.4 mEq/L (3.5-5.1); Sodium 150 mEq/L (136-145); eGFR For African Americans > 60 (> 60); eGFR For Non-African Americans 57 (> 60)
[2019-02-11] MEDS: amLODIPine 5 MG TABLET PO SCH (08:54)
[2019-02-11] MEDS: cloNIDine HCl 0.1 MG TABLET PO SCH ×2 (08:54→21:00)
[2019-02-11] MEDS: Metoprolol XL (24 HR) Succ 50 MG TAB.ER.24H PO SCH (08:54)
[2019-02-11] MEDS: Furosemide 20 MG/2 ML VIAL IVP SCH (08:57)
[2019-02-11] MEDS: Potassium Chloride Elixir 20 MEQ/15 ML UDC PO SCH ×3 (11:25→18:02)
[2019-02-11] MEDS: *HR* LORazepam 2 MG/ML VIAL IVP PRN (11:29)
[2019-02-11] MEDS: D5% in Water 1,000 ML IVC SCH (14:32)
[2019-02-12] MEDS: Aztreonam 500 MG in 0.9 % Sodium Chloride 50 ML IVPB SCH ×2 (01:09→07:40)
[2019-02-12] MEDS: *HR* LORazepam 2 MG/ML VIAL IVP PRN ×2 (01:10→07:46)
[2019-02-12] MEDS ORDERED: *HR* Metoprolol 5 MG/5 ML VIAL IVP ONE (01:20)
[2019-02-12] MEDS: Haloperidol Lactate 5 MG/ML VIAL IVP PRN (04:39)
[2019-02-12 04:40] LABS: Basophils # 0.1 K/mcL (0.0-0.2); Basophils % 0.6 %; Eosinophils # 0.8 K/mcL (0.0-0.6); Eosinophils % 7.2 %; Hematocrit 36.7 % (35.3-44.9); Hemoglobin 11.5 g/dL (11.5-15.4); Immature Granulocytes % 0.4 % (0-4); Lymphocytes # 1.6 K/mcL (0.6-4.6); Lymphocytes % 14.5 %; Mean Corpuscular HGB Conc 31.3 g/dL (31.6-35.5); Mean Corpuscular Hemoglobin 30.3 pg (28.0-33.3); Mean Corpuscular Volume 96.6 fL (83.0-100.0); Mean Platelet Volume 10.5 fL (9.4-12.4); Monocytes # 0.5 K/mcL (0.0-1.3); Monocytes % 4.2 %; Platelet Count 243 K/mcL (140-400); Red Cell Distribution Width 16.2 % (11.5-14.5); Segmented Neutrophils % 73.1 %; White Blood Count 10.9 K/mcL (4.3-11.1)
[2019-02-12 05:01] LABS: BUN/Creatinine Ratio 28 (6-26); Blood Urea Nitrogen 21 mg/dL (8-23); Calcium 8.5 mg/dL (8.6-10.3); Carbon Dioxide 30 mEq/L (23-29); Chloride 107 mEq/L (98-107); Glucose 111 mg/dL (70-105); Magnesium 1.7 mg/dL (1.6-2.6); Osmolality,Calculated 306 (280-300); Phosphorous 2.8 mg/dL (2.7-4.5); Potassium 3.1 mEq/L (3.5-5.1); Sodium 146 mEq/L (136-145); eGFR For African Americans > 60 (> 60); eGFR For Non-African Americans > 60 (> 60)
[2019-02-12] MEDS: Doxycycline 100 MG in 0.9 % Sodium Chloride Mini Bag 100 ML IVPB SCH (05:41)
[2019-02-12] MEDS: D5% in Water 1,000 ML IVC SCH (07:39)
[2019-02-12] MEDS: amLODIPine 5 MG TABLET PO SCH (07:45)
[2019-02-12] MEDS: Metoprolol XL (24 HR) Succ 50 MG TAB.ER.24H PO SCH (07:45)
[2019-02-12] MEDS: cloNIDine HCl 0.1 MG TABLET PO SCH (07:45)
[2019-02-12] MEDS ORDERED: Potassium Chloride 40 MEQ, Lidocaine 1% 2 ML in 0.9 % Sodium Chloride 500 ML IVPB ONE (08:32)
[2019-02-12] MEDS ORDERED: cefTRIAXone 1,000 MG in Water for inj. (sterile) 10 ML IVP SCH (10:00)
[2019-02-12 14:24] LABS: Lactate Dehydrogenase 321 Units/L (140-271)
[2019-02-12 16:58] VITALS: BP 171/97
[2019-02-12] MEDS ORDERED: Doxycycline 100 MG CAPSULE PO SCH (17:00)
[2019-02-12] MEDS ORDERED: Apixaban 5 MG TABLET PO SCH (21:00)
[2019-02-13] MEDS ORDERED: cefTRIAXone 1,000 MG in 0.9 % Sodium Chloride Mini Bag 100 ML IVPB SCH (09:00)
== END 2019-02-12 16:35 | disposition home or self-care (01) | DRG 291 ==
LOC: 3ANU 11:03 → EMEROOARM 11:03 → 3ANU 16:27 → 2ANU 02-12 16:26
PROVIDERS: ADMIT Family Medicine; ATTEND Student in an Organized Health Care Education/Training Program

== ENCOUNTER 2019-02-12 14:18 | Inpatient (IN) ==
[2019-02-12] MEDS ORDERED: Albuterol 2.5 MG/3 ML NEBULIZER IH PRN (16:31)
[2019-02-12] MEDS ORDERED: Haloperidol Oral Conc 10 MG/5 ML UDC PO PRN (16:31)
[2019-02-12] MEDS ORDERED: Bisacodyl 10 MG RECTAL SUPPOSITORY RC PRN (16:31)
[2019-02-12] MEDS ORDERED: Haloperidol Lactate 5 MG/ML VIAL IVP PRN (16:31)
[2019-02-12] MEDS ORDERED: Atropine Sulfate 1% 40 DROP/2 ML BOTTLE SL PRN (16:31)
[2019-02-12] MEDS ORDERED: *HR* Metoprolol 5 MG/5 ML VIAL IVP PRN (16:35)
[2019-02-12] MEDS: Morphine Sulfate Oral CONC 10 MG/0.5 ML ORAL.SYG PO SCH ×2 (20:32→20:44)
[2019-02-13] MEDS: Morphine Sulfate Oral CONC 10 MG/0.5 ML ORAL.SYG PO SCH ×3 (01:32→08:59)
[2019-02-13] MEDS: cefTRIAXone 1,000 MG in 0.9 % Sodium Chloride Mini Bag 100 ML IVPB SCH (08:59)
[2019-02-13] MEDS ORDERED: cefTRIAXone 1,000 MG in Water for inj. (sterile) 10 ML IVP SCH (09:00)
[2019-02-13] MEDS ORDERED: Morphine Sulfate Oral CONC 10 MG/0.5 ML ORAL.SYG PO PRN (10:15)
[2019-02-13] MEDS: amLODIPine 5 MG TABLET PO SCH (11:35)
[2019-02-13] MEDS ORDERED: Metoprolol XL (24 HR) Succ 50 MG TAB.ER.24H PO ONE (14:22)
[2019-02-13] MEDS ORDERED: Metoprolol 100 MG TABLET PO ONE (15:08)
[2019-02-14] MEDS: Metoprolol XL (24 HR) Succ 50 MG TAB.ER.24H PO SCH (08:12)
[2019-02-14] MEDS: Isosorbide MONOnitrate (24 HR) 30 MG TAB.ER.24H PO SCH (08:12)
[2019-02-14] MEDS: amLODIPine 5 MG TABLET PO SCH (08:12)
[2019-02-14] MEDS: cefTRIAXone 1,000 MG in 0.9 % Sodium Chloride Mini Bag 100 ML IVPB SCH (08:13)
[2019-02-14] MEDS ORDERED: Ertapenem 1,000 MG in 0.9 % Sodium Chloride Mini Bag 100 ML IVPB SCH (09:47)
[2019-02-14 12:18] LABS: Basophils % 0.4 %; Eosinophils # 0.2 K/mcL (0.0-0.6); Eosinophils % 1.5 %; Hematocrit 37.7 % (35.3-44.9); Hemoglobin 12.2 g/dL (11.5-15.4); Immature Granulocytes % 0.4 % (0-4); Lymphocytes # 1.1 K/mcL (0.6-4.6); Lymphocytes % 10.8 %; Mean Corpuscular HGB Conc 32.4 g/dL (31.6-35.5); Mean Corpuscular Hemoglobin 30.7 pg (28.0-33.3); Mean Corpuscular Volume 94.7 fL (83.0-100.0); Monocytes # 0.7 K/mcL (0.0-1.3); Monocytes % 6.3 %; Neutrophils # 8.4 K/mcL (1.6-8.9); Platelet Count 238 K/mcL (140-400); Red Blood Count 3.98 M/mcL (3.82-4.97); Red Cell Distribution Width 15.2 % (11.5-14.5); Segmented Neutrophils % 80.6 %; White Blood Count 10.4 K/mcL (4.3-11.1)
[2019-02-14 12:39] LABS: BUN/Creatinine Ratio 21 (6-26); Blood Urea Nitrogen 13 mg/dL (8-23); Calcium 8.5 mg/dL (8.6-10.3); Carbon Dioxide 28 mEq/L (23-29); Chloride 98 mEq/L (98-107); Glucose 75 mg/dL (70-105); Osmolality,Calculated 291 (280-300); Potassium 3.1 mEq/L (3.5-5.1); Sodium 141 mEq/L (136-145); eGFR For African Americans > 60 (> 60); eGFR For Non-African Americans > 60 (> 60)
[2019-02-14] MEDS: Apixaban 5 MG TABLET PO SCH (22:40)
[2019-02-15] MEDS ORDERED: cefTRIAXone 1,000 MG in 0.9 % Sodium Chloride Mini Bag 100 ML IVPB SCH (09:00)
[2019-02-15] MEDS: Apixaban 5 MG TABLET PO SCH (09:36)
[2019-02-15] MEDS: Metoprolol XL (24 HR) Succ 50 MG TAB.ER.24H PO SCH (09:36)
[2019-02-15] MEDS: Isosorbide MONOnitrate (24 HR) 30 MG TAB.ER.24H PO SCH (09:36)
[2019-02-15 09:52] LABS: Magnesium 1.4 mg/dL (1.6-2.6)
[2019-02-15 11:18] VITALS: BP 103/63
== END 2019-02-15 17:49 | DRG 951 ==
LOC: 2ANU 17:45
PROVIDERS: ADMIT Internal Medicine Hospice and Palliative Medicine; ATTEND Internal Medicine Hospice and Palliative Medicine

== ENCOUNTER 2019-02-19 05:35 | Observation (INO) ==
[2019-02-19 06:13] LABS: Hematocrit 44.7 % (35.3-44.9); Hemoglobin 14.8 g/dL (11.5-15.4); Mean Corpuscular HGB Conc 33.1 g/dL (31.6-35.5); Mean Corpuscular Hemoglobin 30.3 pg (28.0-33.3); Mean Corpuscular Volume 91.6 fL (83.0-100.0); Mean Platelet Volume 9.9 fL (9.4-12.4); Platelet Count 330 K/mcL (140-400); Red Blood Count 4.88 M/mcL (3.82-4.97); Red Cell Distribution Width 15.3 % (11.5-14.5); White Blood Count 10.5 K/mcL (4.3-11.1)
[2019-02-19 06:27] LABS: BUN/Creatinine Ratio 20 (6-26); Blood Urea Nitrogen 16 mg/dL (8-23); Calcium 9.3 mg/dL (8.6-10.3); Carbon Dioxide 27 mEq/L (23-29); Chloride 101 mEq/L (98-107); Glucose 138 mg/dL (70-105); Osmolality,Calculated 299 (280-300); Potassium 3.1 mEq/L (3.5-5.1); Sodium 143 mEq/L (136-145); eGFR For African Americans > 60 (> 60); eGFR For Non-African Americans > 60 (> 60)
[2019-02-19 06:32] LABS: Troponin I 0.33 ng/mL (< 0.04)
[2019-02-19] MEDS ORDERED: Naloxone 0.4 MG/ML INJ IVP PRN (11:38)
[2019-02-19] MEDS ORDERED: Acetaminophen 325 MG TABLET PO PRN (16:13)
[2019-02-20] MEDS ORDERED: Morphine Sulfate Oral CONC 10 MG/0.5 ML ORAL.SYG SL PRN (14:31)
[2019-02-20] MEDS ORDERED: Scopolamine Patch 1.5 MG PATCH.TD72 TD SCH (14:45)
[2019-02-21 06:35] VITALS: BP 172/66
[2019-02-21] MEDS ORDERED: Acetaminophen 650 MG RECTAL SUPP RC PRN (06:41)
== END 2019-02-21 13:23 | disposition hospice, inpatient (51) ==
LOC: CDU 05:35 → EMEROOARM 05:35 → SUATTDRO 07:29 → CDU 09:18 → 1NENUPED 02-20 00:23
PROVIDERS: ADMIT Internal Medicine; ATTEND Internal Medicine